=== PATIENT | male | born 2005 | race Caucasian/White ===

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

== ENCOUNTER 2024-01-17 11:45 | Emergency (ER) | payer OTHER ==
[~2024-01-17] VITALS: Ht 167.6 cm; Wt 83.6 kg
[2024-01-17 12:12] VITALS: BP 116/66; PULSE 62; RESP 19; TEMP 98; O2SAT 97
--- NOTE | 2024-01-17 12:17 | NUR ---
PT AMB TO CHAIR C
--- NOTE | 2024-01-17 12:55 | NUR ---
PA LY EVALUATING PT
[2024-01-17] MEDS ORDERED: IBUP-2213 PO (13:05)
[2024-01-17] MEDS ORDERED: DICL100G32 TP (13:05)
--- NOTE | 2024-01-17 13:14 | NUR ---
The patient's care was reviewed and supervised by Hai Greer RN.
--- NOTE | 2024-01-17 13:14 | NUR ---
Patient discharged with v/s stable. Written and verbal after care instructions SHOULDER PAIN given and explained. Patient alert, oriented and verbalized understanding of instructions. Ambulatory with steady gait. All questions addressed prior to discharge. ID band removed. Patient advised to follow up with PMD. Rx of DICLOFENAC SODIUM AND IBUPROFEN given. POpportunity to ask questions provided and answered. WORK NOTE PROVIDED
== END 2024-01-17 13:14 | disposition home or self-care (01) ==
LOC: MED 11:45
DX: S43.402A Unspecified sprain of left shoulder joint, initial encounter (principal); J45.909 Unspecified asthma, uncomplicated; Z90.49 Acquired absence of other specified parts of digestive tract; Z79.899 Other long term (current) drug therapy; W18.39XA Other fall on same level, initial encounter; Y92.89 Other specified places as the place of occurrence of the external cause; Y93.89 Activity, other specified; Y99.8 Other external cause status
CPT/HCPCS: 73030; 99283